=== PATIENT | female | born 2000 | race Caucasian/White ===

== ENCOUNTER 2021-05-12 15:31 | Inpatient (IN) | payer MEDICAID ==
[2021-05-12] VITALS (30 sets, daily range): BP systolic 104–141; BP diastolic 60–101; PULSE 78–125; TEMP 97.2–99.3
[~2021-05-12] VITALS: Ht 160 cm; Wt 75.5 kg
[~2021-05-12 15:31] MED LIST: PROZAC 20MG20 MG PO
[2021-05-12 15:47] LABS: HEMATOCRIT 39.6 % (35.0-45.0); HEMOGLOBIN 13.7 g/dl (12.0-15.0); MEAN CELL VOLUME 86 fl (80.0-95.0); MEAN CORPUSCULAR HEMOGLOBIN 30 pg (26.0-32.0); MEAN CORPUSCULAR HGB CONC 35 g/dl (33.0-37.0); PLATELET COUNT 250 K/mm3 (130-400); RED BLOOD COUNT 4.62 M/mm3 (4.10-5.30); REDCELL DISTRIBUTION WIDTH-CV 12.6 % (11.5-14.5)
[2021-05-12 16:33] LABS: LYMPHOCYTE 6 % (20.0-51.0); MYELOCYTE 1 % (0-0); NEUTROPHILS 92 % (42.0-75.2)
[2021-05-12 16:34] LABS: PLATELET ESTIMATE NORMAL (NORMAL)
--- NOTE | 2021-05-12 16:49 | NUR ---
1524 PATIENT BACK HERE FOR LABOR CHECK, CONTRACTIONS GETTTING MORE INTENSE SVE 4/100/-1 BULGY BAG OF WATER. CONTRACTIONS 1-[address] BARRIOS CALLED AND UPDATED ORDERS TO ADMIT. ASSESSMENT COMPLETED AND CONSENTS SIGNED. IV STARTED IN LEFT HAND. LR STARTED BOLUS AND MADISON TAMEZ CRNA CALLED FOR EPIDURAL PLACEMNET
--- NOTE | 2021-05-12 16:57 | NUR ---
1600 MADISON TAMEZ SLEEP TECHNICIAN AT BEDSIDE TOLERATE EPIDURAL PLACEMENT. SEE SLEEP TECHNICIAN NOTES FOR QUESTIONS PLEASE
--- NOTE | 2021-05-12 18:36 | NUR ---
1815 REPORT GIVEN TO CARLIN MONTES DE OCA TO ASSUME CARE AT THIS TIME
--- NOTE | 2021-05-12 20:10 | NUR ---
MOVED PT TO RIGHT TILT, FETUS LATE DECEL AFTER MOVING PT, FLIPPED TO LEFT TILT WITH NO CHANGE IN FHT'S, RETURNED TO H[place] FOWLERS AFTER SVE. CERVIX REMAINS 6-7/100/+1, FHT'S RETURN TO BASELINE AFTER PT IN HIGH FOWLERS
[2021-05-13] VITALS (8 sets, daily range): BP systolic 115–134; BP diastolic 63–86; PULSE 71–104; TEMP 98–98.7
--- NOTE | 2021-05-13 01:02 | NUR ---
2104 - SVE /+1, PT NOT FEELING URGE TO PUSH AT THIS TIME 2114 - DR HAIR NOTIFIED PT COMPLETE AND WILL LET HER LABOR DOWN
--- NOTE | 2021-05-13 01:26 | NUR ---
FEELING MORE PRESSURE AND URGE TO PUSH, +2 STATION, REEDER CATHETER DC'D WITH 100CC TRISHA URINE OUT
--- NOTE | 2021-05-13 01:37 | NUR ---
PT PUSHING WITH CTXS, RN REMAINS AT BEDSIDE COACHING PT ON PUSHING AND MONITORING STATUS
--- NOTE | 2021-05-13 01:43 | NUR ---
CONTINUES TO PUSH WITH CTXS, DECENT WITH PUSHING EFFORTS. RN REMAINS AT BEDSIDE COACHING PT ON PUSHING AND ASSESSING STATUS. 2213 - DR HAIR TO BEDSIDE, REVIEWS STRIP AND PUSHING EFFORTS
--- NOTE | 2021-05-13 01:49 | NUR ---
CONTINUES PUSHING WITH CTXS, DECENT WITH PUSHING EFFORTS. RN REMAINS AT BEDSIDE PUSHING WITH PT AND ASSESSING WELL BEING. DR HAIR REMAINS IN UNIT AWAITING DELIVERY
--- NOTE | 2021-05-13 01:53 | NUR ---
PT CONTINUES TO PUSH WITH CTXS, RN REMAINS AT BEDSIDE PUSHING WITH PT AND ASSESSING WELL BEING.
--- NOTE | 2021-05-13 02:04 | NUR ---
6 - DR HAIR TO ROOM FOR DELIVERY, PT PREPPED FOR VAGINAL DELIVERY. RN REMAINS AT PT BEDSIDE COACHING PT WITH PUSHING AND ASSESSING STATUS 2255 - OF VIABLE FEMALE , DRIED AND STIMULATED BY DR HAIR, CORD CLAMPED BY AND CUT BY FOB, INFANT TO MOTHERS ABD
--- NOTE | 2021-05-13 02:08 | NUR ---
[id number] - SPONTANEOUS DELIVERY OF PLACENTA 0 - DR HAIR REPAIRING VAGINAL LACERATIONS
[2021-05-13] MEDS ORDERED: IBU800 M1 PO (08:45)
--- NOTE | 2021-05-13 09:14 | NUR ---
Initial visit; Parents thanked Sql Database Developer for offering congratulations and God's blessings for the of their daughter. Sql Database Developer thanked family for choosing [facility].
[2021-05-14 08:14] VITALS: BP 119/79; PULSE 72; TEMP 97.8
--- NOTE | 2021-05-14 13:34 | NUR ---
Watching discharge videos at this time.
== END 2021-05-14 16:20 | disposition home or self-care (01) | DRG 806 ==
LOC: LDRO 15:31 → OB 15:32 → LDR 15:32 → OB 05-13 00:31
PROVIDERS: ADMIT Obstetrics & Gynecology
PROC: 10E0XZZ Delivery of Products of Conception, External Approach (ICD-10-PCS; principal; 2021-05-12)
PROC: 0UQGXZZ Repair Vagina, External Approach (ICD-10-PCS; 2021-05-12)
DX: O77.0 Labor and delivery complicated by meconium in amniotic fluid (principal); O71.4 Obstetric high vaginal laceration alone; Z37.0 Single live birth; Z3A.38 38 weeks gestation of pregnancy; Z23 Encounter for immunization
CPT/HCPCS: J2590; J7120

== ENCOUNTER → 2024-04-20 | Outpatient (CLI) | payer BC ==
[~2024-04-20] MED LIST changes: +IBU800 M1 PO
== END ==
LOC: COL.RAD 05:36
DX: O26.892 Other specified pregnancy related conditions, second trimester (principal); Z3A.14 14 weeks gestation of pregnancy